=== PATIENT | female | born 2000 | race African-American/Black ===

== ENCOUNTER 2019-03-09 19:59 | Emergency (ER) | payer MEDICAID ==
[~2019-03-09] VITALS: Ht 160 cm; Wt 68.9 kg
[2019-03-09 20:21] VITALS: BP 98/59
== END 2019-03-09 21:42 | disposition left against medical advice (07) ==
LOC: ER 20:01
DX: R07.2 Precordial pain (principal); Z53.21 Procedure and treatment not carried out due to patient leaving prior to being seen by health care provider
CPT/HCPCS: 93005